=== PATIENT | male | born 1965 | race Caucasian/White ===

== ENCOUNTER → 2016-12-12 | Outpatient (CLI) | payer OTHER ==
[~2016-12-12] MED LIST: ACETAMINOPHEN PO; ADVAIR 2501 DISK W/D PO; ALBUTEROL17 G1 IH; ALBUTEROL17 GM INH; ALDACTAZIDE PO; AMBIEN PO; AMBIEN10 MG PO; ASPIRIN81 M1 PO; COMBIVENT MININEB INH; DIAZEPAM PO; DIAZEPAM10 MG PO; DUONEB 2.5-0.5 M3 ML NEB; E-MYCIN250 MG OP; E-MYCIN250 MG PO; HCTZ PO; LEVAQUIN PO; LISINOPRIL10 MG PO; LORTAB 10-5001 EACH PO; LORTAB 10/500 T1 TAB PO; MEDROL PO; MEDROL4 MG/DOSE- PO; NEURONTIN600 MG DOB; NICOTINE T1 PATCH .2 TOP; NITROGLYCERIN0.4 MG SL; NORCO1 TAB 10/3; PAXIL PO; PAXIL40 MG PO; PHENERGAN W/CO120 ML PO; PRISTIQ50 MG PO; SUBOXONE 8 MG-1 EAC1 SL; UNKNOWN BP MED; UNKNOWN PAIN MED; ZESTORETIC 20/21 TAB PO; ZITHROMAX1 G/PKT PO; [UNRECOGNIZED DRUG - REMARK]
--- NOTE | ~2016-12-12 | MR113 ---
[facility] A Service of [facility] & [facility] RADIOLOGY TEXT RESULTS PATIENT: CANDE WHITE LOCATION: [facility] : 69 UNIT #: [id number] AGE: [address]: Jasvir Tam MD SEX: M ORDER DR: [id number] [place] [id number] O MR#: [id number] Acc #: [id number] NAME: CANDE WHITE : 1965 SEX: M STUDY DATE/TIME: 12/12/2016 13:18 UNIT: [facility] ROOM: STUDY DESCRIPTION: MR Lumbar Wo Contrast Attending Physician: Jasvir Tam M.D. Ordering Physician: Jasvir Tam M.D. Primary Care Physician: Jasvir Tam M.D. MRI CENTER REPORT This report is preliminary unless electronic signature is present. EXAM Lumbar spine MRI without HISTORY Low-back pain, bilateral leg radiculopathy for years, right side being worse. Pain progressively worse in the past 6 months with decreased range of motion. Patient fell across a bath tub 8 years ago. Large body habitus. COMMENT MRI of the lumbar spine performed without contrast using routine 1.5T wide-bore imaging technique. There is a plain film comparison pending religious from 05/14/2014. Sagittal alignment is normal. Marrow signal intensity is unremarkable allowing for some mild marrow endplate degenerative change and focal fat or hemangioma at L2 vertebral body. The conus medullaris terminates at L1 and is normal. There is disc desiccation and loss of intervertebral disc height at L4-5 and L5-S1 with small posterior annular fissures. At L1-2, there is mild facet degenerative change bilaterally. There is no canal or foraminal compromise. At L2-3, there is mild bilateral facet degenerative change with minor disc bulging into the inferior foramina but there is no significant canal or foraminal impingement. At L3-4, there is moderate facet degenerative change bilaterally with ligamentum flavum thickening. There is a mild concentric disc bulge more prominent posteriorly and extending into the foramina. There is mild central canal stenosis and [id number] right and left-sided foraminal narrowing. ST[facility] A Service of [facility] & [facility] RADIOLOGY TEXT RESULTS PATIENT: CANDE WHITE LOCATION: [facility] : 69 UNIT #: [id number] AGE: [address]: Jasvir Tam MD SEX: M ORDER DR: At L4-5, there is severe right-side facet arthritis more moderate left-side facet arthritis. There is mild ligamentum flavum thickening. There is a concentric disc bulge with a superimposed broad posterior protrusion/small extrusion with a component of disc material extending caudad from the disc level but remaining contiguous with it central to right paramedian location. The combination of findings result in mild canal stenosis and mass effect on right greater than left lateral recess expected location L5 roots. Disc material also extends into the foramina. There is mild left and [id number] right-side foraminal impingement. At L5-S1, there is mild right sided facet degenerative change. There is a central protrusion/extrusion with annular fissure. It results in mild mass effect on the anterior thecal sac and right greater than left lateral recess but there is no significant central canal stenosis. There is mild right and left foraminal narrowing. IMPRESSION Multilevel lumbar degenerative changes are detailed above. Findings are most significant appearing radiographically at the L4-5 level where there is asymmetric severe right-sided facet degenerative change and mild canal stenosis but please refer to the multilevel findings in the comment section and correlate with radicular symptoms. Dictated by... Aimee Torres M.D. THIS IS AN ELECTRONICALLY VERIFIED REPORT Aimee Torres M.D. at 12/13/2016 1:56 PM BRAVO/corey TD: 12/13/2016 09:16 JOB #: [id number] MRI CENTER REPORT Page 1 of 1
== END | disposition home or self-care (01) ==
LOC: SMRI 12:43
DX: M54.5 Low back pain (principal); M47.896 Other spondylosis, lumbar region; M48.06 Spinal stenosis, lumbar region
CPT/HCPCS: 72148